=== PATIENT | female | born 1935 | race Caucasian/White ===

== ENCOUNTER 2016-06-15 10:11 | Day surgery (SDC) | payer MEDICARE, OTHER ==
[~2016-06-15] VITALS: Ht 157.5 cm; Wt 72.9 kg
[~2016-06-15 10:11] MED LIST: ALPR0.5T8 PO; HYDR25TA4 PO; LEVO75TA4 PO; LISI40TA PO; Lactated Ringer's 1,000 ML IV SCH; MAGN100T5 PO; METO25TA6 PO; MULT-1018 PO; OXYB5TAB10 PO; POTA20TA16 PO; RIVA20TA PO; SERT25TA6 PO; SIMV20TA PO
[2016-06-15] MEDS ORDERED: fentaNYL-PF 50 mCg/mL 2 mL Inj ONE (10:12)
[2016-06-15] MEDS ORDERED: Propofol 10,000 mCg/mL 20 mL Inj ONE (10:12)
[2016-06-15] MEDS ORDERED: Phenylephrine/NS 100 mCg/mL 10 mL Syringe IVPUSH ONE (10:12)
[2016-06-15 10:37] VITALS: BP 154/73; PULSE 94; RESP 20; O2SAT 99
[2016-06-15] MEDS ORDERED: Clindamycin 900 mg/50 mL D5W Premix IV ONE (10:39)
[2016-06-15] MEDS ORDERED: Lactated Ringer's 1,000 ML IV ONE (10:52)
[2016-06-15] MEDS ORDERED: Lidocaine 1%-Epi 1:100,000 20 mL Inj INFILTRATE ONE (11:30)
[2016-06-15] MEDS ORDERED: Bupivacaine-MPF 0.5% 30 mL Inj INFILTRATE ONE (11:30)
[2016-06-15] MEDS ORDERED: Lactated Ringer's 1,000 ML IV SCH (11:54)
[2016-06-15] MEDS ORDERED: Lactated Ringer's 500 ML IV PRN (11:54)
--- NOTE | 2016-06-15 11:54 | PCM.HPANE ---
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 Ht/WT & BMI Height (Feet): 5 Height (Inches): 2 Weight (Kilograms): 72.9 Body Mass Index 29.00 Allergies Coded Allergies: hydromorphone (Verified Allergy, Severe, RASH, 12/14/15) oxycodone (Unverified Allergy, Unknown, 05/03/16) tramadol (Verified Allergy, Unknown, 12/21/15) hydroxyzine (Verified Adverse Reaction, Severe, CONFUSION, 12/14/15) Past Anesthesia History Anesthesia History: Denies:: Abnormal Airway, Anesthesia Reactions, Difficult Intubation, Fam Anesthesia Reaction, Malignant Hyperthermia Diabetes History Hx Diabetes?: No MRSA MRSA: No (HX STAPH INFECTION) Medications Blood Thinner: Xarelto Hypertension Medication: Yes Home Meds Incl Beta Dajuan: Yes (does not take regularly) Reported Medications Rivaroxaban (Xarelto)20 Mg Zokhec61 Mg PO DAILY 11/06/15 Metoprolol Tartrate 25 Mg Jftukw55.5 Mg PO DAILY PRN afib sx 30 Days Ref 0 11/06/15 Simvastatin (Zocor)20 Mg Qebndl31 Mg PO HS 30 Days Ref 0 11/06/15 Sertraline HCl (Sertraline)25 Mg Qnopxi65 Mg PO DAILY 30 Days Ref 0 11/06/15 Potassium Chloride 20 Meq Tab.er.prt20 Meq PO DAILY 30 Days Ref 0 TAKE WITH FOOD 11/06/15 Oxybutynin Chloride 5 Mg Tablet5 Mg PO DAILY Ref 0 11/06/15 Magnesium Amino Acid Chelate (Magnesium)100 Mg Xloedr866 Mg PO DAILY 11/06/15 Lisinopril 40 Mg Sirwny67 Mg PO DAILY 30 Days Ref 0 11/06/15 Levothyroxine 75 Mcg Vsjjwj82 Mcg PO DAILY Ref 0 11/06/15 Hydrochlorothiazide 25 Mg Cwalgp11 Mg PO DAILY 30 Days Ref 0 11/06/15 Multivitamin (Multi Vitamin Daily)1 Each Tablet1 Each PO DAILY 30 Days Ref 0 11/06/15 Alprazolam 0.5 Mg Tablet1.5 Mg PO DAILY PRN For Anxiety Ref 0 11/06/15 History History of ENT Problems?: Yes HEENT History: Positive for:: Cataracts (bilateral ) Denies:: Abnormal Airway Difficult Intubation Dysphagia Hearing Problem Sinus Problem TMJ Hx of Heart Problems?: Yes Cardiovascular History: Positive for:: Atrial Fibrillation Heart Murmur (mod. - sev MR) Hypertension (hld) Irregular Heartbeat (HX OF PVC'S,A FIB) Valvular Heart Disease (Mod/Severe MR echo 12/2014) Hx of Respiratory Problem?: No Respiratory History: Denies:: Asthma COPD Emphysema Oxygen Administration Pneumonia Tuberculosis Use of C-PAP Machine Hx Neurologic Problems?: No Neurological History: Denies:: CVA Dementia Dizziness Headaches Multiple Sclerosis Parkinson's Disease Seizures Hx of GI Problems?: Yes Gastrointestinal History: Positive for:: Gastroesphageal Reflux Denies:: Cirrhosis Gastrointestinal Bleeding Heartburn Hepatitis Hiatal Hernia Rectal Bleeding Hx of Problems?: Yes Genitourinary History: Positive for:: Urinary Tract Infection (HX OF) Denies:: Kidney Stones Other Pertinent History: hx of urgency with botox injections Female Hx: Denies:: Currently Problems with Breasts? Skin History: Positive for:: History Skin Disorders? (left leg wounds, and right wrist- current admission problem) Pressure Ulcers (being seen at wound care) Hx Musculoskeletal Problems?: Yes Musculoskeletal History: Positive for:: Degenerative Joint Joint Replacement (bilat knees) Musculoskeletal Trauma (recent fx right foot- no longer wearing cast boot) Denies:: Back Injury Systemic Lupus Hx of Psycho/Social Problems?: Yes Psycho Social History: Positive for:: Anxiety Hx Surgeries?: Yes (HYST,EXC SKIN CA'S,LT BUNION,LT FOOT BONE SPUR,BILAT TKA'S, LT CTR) Hx Any Other Health Problems?: Yes Other History: Positive for:: Cancer ([facility]CC current admission problem) Thyroid Disease Denies:: Endocrine Disease Hospitalization History Blood Transfusions: Denies:: Blood Transfusions Hx Diabetes: No Hx Alcohol Use: YesHx Substance Use: No Smoking Status: Former Smoker Have You Smoked inLast 12 mo: No Stop/Bang S-Snoring: Do You Snore Loudly: No T-Tired: feel tired, fatigued: No O-Obsered: Observed not breath: No P-Blood Pressure: treated: Yes B- Body Mass Index > 35 kg/m2: No A- Age over 50: Yes N- Neck Large Circumference: No G- Gender Male: No BELL Total Score: 2 BELL Risk Assessment: Low Risk, <3 Yes Risk Assessment Category Category 1A: Patient has history of documented sleep apnea, and HAS NOT received any narcotic, sedative or anesthesia administration during this stay. Category 1B: Patient has history of documented sleep apnea, and HAS received any narcotic , sedative or anesthesia administration during this stay Category 2: Patient has SUSPECTED Obstructive Sleep Apnea, and HAS received any narcotic , sedative or anesthesia administration during this stay. Category 3: Patient has SUSPECTED Obstructive Sleep Apnea and HAS NOT received narcotic, sedative or anesthesia administration during this stay. Category 4: Outpatient in Procedural Areas with known sleep apnea or who screen positive for High Risk via the STOP/BANG questionnaire. Exam Exam Vital Signs Vital Signs Date Time Temp Pulse Resp B/P Pulse Ox O2 Delivery O2 Flow Rate FiO2 06/15/16 10:37 36.5 94 20 154/73 99 Room Air General Appearance: Alert, Oriented X3, Cooperative, No Acute Distress HEENT/AIRWAY: MP 2 Lungs: Clear to Auscultation, Normal Air Movement Heart: Normal S1 (irregularly, irregular), Normal S2, No Murmurs/Rubs/Gallops Meds/Labs/Diagnostics Admission Meds Current Medications Lactated Ringer's (Lr) 1,000 ml @ ud STK-MED ONCE IV Last administered on t 10:52; Start 06/15/16 at 10:52; Stop 06/15/16 at 10:53; Status DC Plan Impression Patient chart reviewed, patient interviewed and anesthestic plan with risks, benefits, and alternatives discussed, and informed consent obtained. NPO Status: 0600 WATER WITH MEDS ASA Physical Status: ASA3 Severe Disease Anesthetic Plan: MAC Bene/Risks/Altern/Consents: Yes HP Complete Prior to Induction: Yes Rayshawn Govea MD Jun 15, 2016 11:04
[2016-06-15] MEDS ORDERED: Atropine 0.4 mg/mL Inj IVPUSH PRN (11:55)
[2016-06-15] MEDS ORDERED: MetoCLOpramide 5 mg/mL 2 mL Inj IVPUSH PRN (11:55)
[2016-06-15] MEDS ORDERED: hydrALAZINE 20 mg/mL Inj IVPUSH PRN (11:55)
[2016-06-15] MEDS ORDERED: Labetalol 5 mg/mL 4 mL Inj IV PRN (11:55)
[2016-06-15] MEDS ORDERED: fentaNYL-PF 50 mCg/mL 2 mL Inj IVPUSH PRN (11:55)
[2016-06-15] MEDS ORDERED: Ondansetron 2 mg/mL 2 mL Inj IVPUSH PRN (11:55)
[2016-06-15] MEDS ORDERED: Phenylephrine 10,000 mCg/mL Inj IVPUSH PRN (11:55)
[2016-06-15] MEDS ORDERED: EPHEDrine Sulfate 50 mg/mL Inj IVPUSH PRN (11:55)
[2016-06-15] MEDS ORDERED: HYDROcodone-APAP 5-325 mg Tablet PO PRN (13:30)
[2016-06-15 13:37] VITALS: BP 143/67; PULSE 83; RESP 14; O2SAT 99
--- NOTE | 2016-06-15 13:57 | PCM.ANEP2 ---
Post Anesthesia Evaluation ASA/CMS Post Anesthesia VS in Patient's Normal Range?: Yes Resp Stable; Airway Patent?: Yes CV Function & Hydration Stable: Yes Mental Status Recovered?: Yes Pain control Satisfactory?: Yes N/V Control Satisfactory?: Yes Additional Comments Phase II from OR. Rayshawn Govea MD Jun 15, 2016 13:57
--- NOTE | 2016-06-15 13:57 | PCM.ANEP1 ---
Post Anesthesia Phase 1 PACU Phase 1 Assessment Vital Signs Vital Signs Date Time Temp Pulse Resp B/P Pulse Ox O2 Delivery O2 Flow Rate FiO2 06/15/16 10:37 36.5 94 20 154/73 99 Room Air Anesthetic Administered: MAC Level of Alertness: Awake, talking SMITH's with Equal Strength: Yes Pain: No Nausea or Vomiting: No Oxygen Delivery: Room Air Lungs: Clear to Auscultation, Normal Air Movement Summary VSS in phase II. Rayshawn Govea MD Jun 15, 2016 13:57
--- NOTE | 2016-06-15 14:13 | OP ---
[address] [address] OPERATIVE REPORT PATIENT: MICHELLE SUTTON : 1935 MR#: [id number] ADMIT: 06/15/2016 JOB ID: [id number] DATE OF SURGERY: 06/15/2016 PREOPERATIVE DIAGNOSIS(ES): 1. Right wrist squamous cell carcinoma. 2. 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 POSTOPERATIVE DIAGNOSIS(ES): 1. Right wrist squamous cell carcinoma. 2. 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 PROCEDURE: 1. Excision of right wrist squamous cell carcinoma defect, 3 cm x 4 cm. 2. Layered closure of right wrist. The defect total length of layered closure 10 cm. 3. Excision of left dorsal foot/ankle squamous cell carcinoma excision diameter 3 cm. 4. Full-thickness skin graft to the left ankle wound, 7 square cm. SURGEON: Hussein Harris MD. BRAND DIRECTOR: None. ANESTHESIA: MAC with local. COMPLICATIONS: None apparent. SPECIMEN: 1. Right wrist squamous cell carcinoma to Pathology. Frozen section demonstrated positive proximal margin. 2. Left ankle squamous cell carcinoma to Pathology. Frozen section demonstrated positive dorsal/lateral margin and possible deep margin involvement. 3. Additional right wrist margin with true margin inked. Frozen section demonstrated negative for residual malignancy. 4. Additional left ankle margin frozen section demonstrated negative residual melanoma. DRAINS: None. ESTIMATED BLOOD LOSS: 10 cc. COMPLICATIONS: None apparent. INDICATIONS FOR PROCEDURE: This is an 80-year-old female patient with two biopsy-proven squamous cell carcinomas. One was at the right wrist, the other one was at the left ankle on the dorsal foot. At this point, excisions are indicated. PROCEDURES AND FINDINGS: The patient was identified in the preoperative area and surgical sites were marked. The patient was then taken back to the operating room and placed supine on the operating table. Appropriate time-outs were taken. MAC was induced smoothly. The patient was then prepped and draped in the usual sterile manner. Local anesthesia was infiltrated to both surgical sites consisting of 1% lidocaine with epinephrine and 0.25% Marcaine. I then first turned my attention to the right wrist. It was noted that patient had an ovoid, protuberant skin cancer at the right radial wrist. A 3-4 mm margin was marked. Incision was then made with a #15 blade and deepened down to the underlying subcutaneous tissue. This skin cancer was then elevated off of the subcutaneous tissue and passed off to Pathology as a specimen. A short stitch was used to diana distal along a bone stitch radial. Frozen section demonstrated a possible proximal margin. At this point, an additional 2 mm rim of tissue was elevated from the ulnar aspect of the wound, to the proximal aspect of the wound, to the radial aspect of the wound. This was passed off to Pathology as a specimen. The true margin was inked. During this process, I turned my attention to the left ankle. Again, there was a wound on the dorsal aspect of the foot at the ankle. A 5 mm margin was marked around this wound. Incision was then made with a #15 blade down to the underlying subcutaneous tissue. A circular piece of skin was then elevated off of the subcutaneous tissue. A short stitch was then used to diana distal and long stitch was used to diana lateral. This was passed off to Pathology as a specimen. Frozen section demonstrated a positive lateral margin and deep margin. An additional 3 mm cuff of skin was then excised from the proximal edge of the wound, through the lateral edge of the wound, to the distal edge of the wound. This was passed off to Pathology as a specimen with the true margin inked. I then excised as much of the wound base as possible with electrocautery without exposing the paratenon. I was not able to preserve the small pieces of the wound base for pathology. Hemostasis obtained with electrocautery on both sides. The frozen section for both sites were negative. I then turned my attention to the right wrist. An ellipse was then designed to encompass the defect. Incision was then made along the ellipse. The two skin darts on the proximal and distal ends of the ellipse were then excised at a superficial subcutaneous level. These were saved to use as a full-thickness skin graft of the left ankle. Once this had been done, the defect was reapproximated first with a layer of 3-0 Monocryl deep dermal suture, followed by 4-0 nylon simple running suture. The total length of layered closure was 10 cm. I then turned my attention to the left ankle. The skin from the right wrist was then defatted and placed into the wound. It was anchored at several places using 4-0 silk sutures with the tails left long. The two pieces of the graft were then sutured together toward the middle of the wound with a layer of 5-0 chromic simple interrupted sutures. Once this had been done, excess graft was trimmed. Circumferential 5-0 chromic gut simple interrupted suture was then placed to secure the graft. I then placed several more 4-0 silk simple interrupted sutures around the graft again with the tails left long. Once this had been done, a bolster dressing was then made comprising of a 5 x 9 piece of Xeroform wadded into a sphere. This was then placed over the graft. The bolster dressing was then held in place using the tails from the silk sutures. The patient tolerated the procedure well. Needle count, sponge count, instrument count were correct at the end of the procedure. Patient was transported to recovery in stable condition. ROSA
[2016-06-15 14:45] VITALS: BP 118/74; PULSE 68; RESP 16; O2SAT 98
--- NOTE | 2016-06-15 17:31 | NUR ---
Wound Care Pt seen at recovery after surgery by Dr Harris for excision of squamous cell carcinomas from the right wrist and left ankle with full thickness skin grafting at left ankle with excess skin from wrist excision. Left ankle is redressed by placing 2 pieces of gauze with a hole cut for bolster dressing over the graft, then 2 layers of mepilex foam with hole cut out in both to protect bolster dressing from 2 layer compression wrap at the leg, It is OK for home health nurse to change the dressing on Monday if her leg is weeping alot as Dr Harris does not want his graft floating in drainage. Pt to Follow up at the wound center on 06/[address] Harris
== END 2016-06-15 23:59 | disposition home or self-care (01) ==
LOC: SAS 10:11
PROVIDERS: ATTEND Plastic Surgery
DX: C44.622 Squamous cell carcinoma of skin of right upper limb, including shoulder (principal); C44.729 Squamous cell carcinoma of skin of left lower limb, including hip; I48.2 Chronic atrial fibrillation; I10 Essential (primary) hypertension
CPT/HCPCS: 11603; 11604; 12034; 15220; 36415; 80048; J2250; J2370; J3010; J7120